=== PATIENT | female | born 1990 | race Caucasian/White ===

== ENCOUNTER 2023-09-11 12:12 | Emergency (ER) | payer BC, SELFPAY ==
[2023-09-11 12:25] VITALS: BP 119/76; PULSE 87; RESP 18; TEMP 36.8; O2SAT 99; BMI 21.9
--- NOTE | 2023-09-11 12:30 | PC.NURSE ---
GAUZE SOAKED WITH SALINE AT THIS TIME AND GENTLY REMOVED FROM LEFT GREAT TOENAIL AT THIS TIME
--- NOTE | 2023-09-11 12:42 | ED_ITS ---
Discharge Plan Disposition Patient Disposition: Home, Self-Care Condition: Good Referrals Follow up/Referrals: Provider,Referral, MD [Primary Care Provider] - See instructions Clinical Impressions Clinical Impression: Pain in toe of left foot Instructions Patient Instructions: DI for Ingrown Toenail Removal Discharge ED Provider: Samina Mccracken [facility] [place], [place] HPI General Stated complaint: Pain in left great toe Mode of Arrival: Ambulatory Source of Information: Patient Limitations: No Limitations Time Seen by Provider: 09/11/23 12:42 Description of Symptoms (Recalled from Triage Doc. by RN): PATIENT STATES SHE HAD HER LEFT GREAT TOENAIL REMOVED ON THURSDAY AND THE GAUZE IS STUCK TO THE NAILBED. SHE REPORTS SOAKING IT SEVERAL TIMES YESTERDAY BUT WAS UNABLE TO REMOVE IT HEENT Symptoms (Recalled from RN notes): No Resp Symptoms (Recalled from RN notes): No Skin Symptoms (Recalled from RN notes): Yes MS Symptoms (Recalled from RN notes): No Functional Status (Recalled from RN notes): WNL History of Present Illness Provider Complaint: Patient had left great toenail removed 2 days ago. Cannot get gauze loose to change dressing. Onset (ago): day(s) Location: left and lower extremity Exacerbating factors: none Associated symptoms: denies other symptoms Treatments prior to arrival: none Related Data Allergies Allergy/AdvReac Type Severity Reaction Status Date / Time No Known Allergies Allergy Verified 09/11/23 12:38 Worker's Comp Is this a Worker's Comp case?: No [facility] Disclaimer: The information contained in this section may have been updated after the patient was seen, as this information can be updated by other users. Social History Smoking Status: Never smoker alcohol intake: never current occupational status: employed Travel in the last 8 weeks: None ROS Obtained: Yes All systems reviewed & no additional complaints except as documented Physical Exam General General appearance: alert and in no apparent distress Chest Chest inspection: Present normal inspection and symmetric chest wall rise; Absent tenderness Respiratory Respiratory exam: Present normal lung sounds bilaterally; Absent respiratory distress Cardiovascular Cardiovascular exam: Present regular rate Extremities Exam Extremities exam: Present normal inspection, full ROM and normal capillary refill; Absent calf tenderness Expanded Lower Extremity Exam Left: Foot/toe exam: Present erythema Neurological Exam Neurological exam: Present alert and oriented X3 Psychiatric Psychiatric exam: Present normal affect and normal mood Skin Skin exam: Present warm, dry, intact and normal color Medical Decision Making Dmias Inquiry Pt receiving controlled substance: No Vital Signs: 09/11/23 12:25 Temperature 98.2 F Temperature Source Oral Pulse Rate [Left Brachial] 87 Respiratory Rate 18 Blood Pressure [Left Arm] 119/76 Blood Pressure Mean [Left Arm] 90 Blood Pressure Source [Left Arm] Automatic Cuff Blood Pressure Position [Left Arm] Sitting 02 Sat by Pulse Oximetry 99 Oxygen Delivery Method Room Air
[2023-09-11 12:54] VITALS: BP 119/76; PULSE 87; RESP 18; TEMP 36.8; O2SAT 99
== END 2023-09-11 12:56 | disposition home or self-care (01) ==
PROVIDERS: Emergency Provider Physician Assistant
DX: M79.675 Pain in left toe(s) (principal)
CPT/HCPCS: 99203; 99212; G0463

== ENCOUNTER 2024-03-31 07:28 | Outpatient (CLI) | payer BC, SELFPAY ==
--- NOTE | 2024-03-31 07:45 | US_ITS ---
FINAL REPORT CLINICAL HISTORY: NAUSEA WEIGHT LOSS COMPARISON: None FINDINGS: Sonographic images of the right upper quadrant were obtained. The pancreas is within normal limits.The liver has an unremarkable appearance.The gallbladder is partially contracted with a small amount of sludge. There is no evidence of gallstones.There is no evidence of biliary ductal dilatation.The common duct measures 2mm. Limited images of the right kidney are unremarkable. IMPRESSION: Partially contracted gallbladder with a small amount of sludge. Reviewed, Interpreted and Dictated by Milton Duke MD Transcribed by Ct Brasher Authenticated and [facility]
== END 2024-03-31 23:59 | disposition home or self-care (01) ==
PROVIDERS: PCP Family Medicine; Visit Provider Family Medicine
DX: R11.0 Nausea (principal); R63.4 Abnormal weight loss
CPT/HCPCS: 76705

== ENCOUNTER 2024-04-05 12:40 | Outpatient (CLI) | payer BC, SELFPAY ==
[2024-04-07 13:39] LABS: H. pylori Breath Test Negative (Negative)
== END 2024-04-05 23:59 | disposition home or self-care (01) ==
LOC: LAB 12:43
PROVIDERS: PCP Family Medicine; Visit Provider Family Medicine
DX: R11.0 Nausea (principal)
CPT/HCPCS: 83013

== ENCOUNTER 2024-04-29 06:40 | Outpatient (CLI) | payer BC, SELFPAY ==
--- NOTE | 2024-04-29 06:48 | NM_ITS ---
FINAL REPORT CLINICAL HISTORY: NAUSEA, SLUDGE IN GALLBLADDER COMPARISON: None FINDINGS: Sequential anterior projection images of the abdomen were obtained after the intravenous injection of 7.91 mCi technetium 99m Choletec. There is normal uptake of radiotracer by the liver. The bile ducts are visualized by 5 minutes. Gallbladder activity is seen by 10 minutes. Bowel activity is noted by 30 minutes. After 1 hour, 1.1 ?g of CCK was injected intravenously for calculation of gallbladder ejection fraction. The gallbladder ejection fraction is 74%, which is within normal limits. IMPRESSION: No evidence of cystic duct or bile duct obstruction. Normal gallbladder ejection fraction of 74%. Reviewed, Interpreted and Dictated by Milton Duke MD Transcribed by Macy Cooper Authenticated and [facility]
[2024-04-29] MEDS: SODIUM CHLORIDE 0.9% IV (08:32)
[2024-04-29] MEDS: SODIUM CHLORIDE 0.9% 10ML SYR (RAD ONLY) 10 ML IV (08:32)
[2024-04-29] MEDS: SINCALIDE IV (08:32)
[2024-04-29] MEDS: ISOTOPE CHOLETECH;1 DOSE (UP TO 15 MCI) IV (08:32)
== END 2024-04-29 23:59 | disposition home or self-care (01) ==
LOC: RAD 06:41
PROVIDERS: PCP Family Medicine; Visit Provider Family Medicine
DX: R11.0 Nausea (principal); K82.8 Other specified diseases of gallbladder
CPT/HCPCS: 78227; A9537; J2805